=== PATIENT | male | born 1990 | race Caucasian/White ===

== ENCOUNTER 2016-08-28 12:15 | Emergency (ER) | payer OTHER ==
[2016-08-28 13:10] LABS: Hematocrit 43 % (42-52); Hemoglobin 13.8 g/dl (14.0-18.0); Mean Corpuscular HGB Conc 32 g/dl (31-36); Mean Corpuscular Hemoglobin 27 pg (27-31); Mean Corpuscular Volume 84 fL (80-94); Mean Platelet Volume 9 um3 (7.4-10.4); Red Blood Count 5.04 10^6/ul (4.0-5.4); Red Cell Distribution Width 14 % (10.5-15); White Blood Count 8.6 10^3/ul (3.5-10.8)
[2016-08-28 13:27] LABS: Albumin 4.6 g/dL (3.2-5.2); BUN/Creatinine Ratio 8.6 (8-20); C Reactive Protein 71.35 mg/L (< 5.00); Calcium 9.3 mg/dL (8.6-10.3); EGFR African American 125.3 (>60); EGFR Non-African American 97.5 (>60); Globulin 3.2 g/dL (2-4); Potassium 3.7 mmol/L (3.5-5.0); Total Bilirubin 0.5 mg/dL (0.2-1.0); Total Protein 7.8 g/dL (6.4-8.9)
[2016-08-28] MEDS ORDERED: NS 0.9% 1000 ML* 1,000 ML IV ONE (13:37)
[2016-08-28] MEDS ORDERED: HYDROmorphone* 1 MG/ML 1 ML SYR IV ONE ×2 (13:37→16:03)
[2016-08-28] MEDS ORDERED: Ondansetron INJ* 2 MG/ML VIAL IV ONE (13:37)
--- NOTE | 2016-08-28 13:53 | RAD ---
Indication: Abdominal pain. Flat and upright views of the abdomen demonstrates no free air. Moderately distended loops of small bowel are noted in the nonspecific pattern. Moderate distention is noted. IMPRESSION: Moderately distended loops of small bowel in nonspecific pattern. No free air is noted
[2016-08-28] MEDS ORDERED: Iohexol 300* (CONTRAST) 10 ML SDV IV ONE (17:29)
--- NOTE | 2016-08-28 17:52 | RAD ---
INDICATION: Gaseous distention. Pain. Ulcerative colitis with colectomy COMPARISON: Abdomen August 28, 2016 TECHNIQUE: Axial source images were obtained from the hemidiaphragms to the symphysis pubis following administration of oral and intravenous contrast. 105 mL Omnipaque 300 was utilized. Coronal and sagittal reconstructed images were acquired. Lung bases: The lung bases are clear. Liver: The liver is normal in size. There are no masses. There is no ductal dilatation. Gallbladder: There are no calcified gallstones. There is no evidence of wall thickening or pericholecystic fluid. Spleen: The spleen is normal in size. There are no masses. Pancreas: There is no focal pancreatic mass or ductal dilatation. Adrenal glands: There is no evidence of adrenal mass. Kidneys: The kidneys are normal in size and position. There are prompt nephrograms and there is prompt excretion bilaterally. There are no renal parenchymal masses. There is no evidence of nephrolithiasis. Adenopathy: There is no evidence of adenopathy by size criteria. Fluid collections: There are no free or localized fluid collections. Vessels:There are no significant atherosclerotic changes involving the aorta. There is no focal aneurysm. The iliac vessels are normal in caliber. The IVC appears normal. GI tract: There is colectomy by history for ulcerative colitis. There are multiple suture lines compatible with abdominal surgery. There is a stool-filled hollow viscus extending to the rectum presumably representing the dilated stool-filled ileum in this patient with presumed ileoanal anastomosis. The proximal small bowel loops are contrast-filled and measure up to 3 cm. Pelvic organs: The prostate and seminal vesicles appear normal Bladder: There are no bladder masses. Abdominal and pelvic soft tissues: The extraperitoneal abdominal and pelvic soft tissues appear normal.. Osseous structures: There are no acute osseous findings. Other: None IMPRESSION: COLECTOMY WITH ILEOANAL ANASTOMOSIS. THERE IS STOOL IN THE DILATED J-POUCH.
[2016-08-28 18:48] VITALS: BP 128/63
--- NOTE | 2016-08-28 18:53 | ED ---
Rick Grant Auryana, scribed for Andrew Cortez MD on 08/28/16 at 1240 . Abdominal Pain/Male - HPI Summary HPI Summary: 26 year old male presents with upper abdominal pain starting yesterday. He reports that the pain is constant but is intermittent, worst pain - overnight 6/ 10, and slight improvement after 10 am today. Patient reports increased abdominal distention with decreased appetite, small BMs (abnormal per patient) and no passing of gas (abnormal per patient). He denies any nausea or vomiting. Symptoms are aggravated by food. PMHx is significant for ulcerative colitis with colecotmy and J-pouch surgery (2015). - History of Current Complaint Chief Complaint: EDAbdPain Stated Complaint: UPPER /LOWER ABD PAIN PRESSURE Time Seen by Provider: 08/28/16 12:37 Hx Obtained From: Patient Onset/Duration: Gradual Onset, Still Present Timing: Constant Severity Initially: Mild Severity Currently: Moderate Pain Intensity: 6 Pain Scale Used: 0-10 Numeric Location: Other - upper abdominal pain Radiates: No Associated Signs And Symptoms: Positive: Decreased Appetite, Other - abdominal distention. Negative: Nausea, Vomiting Similar Episode/Dx As:: see hpi PMH/Surg Hx/FS Hx/Imm Hx GI History: Reports: Other GI Disorders - ulcerative colitis Infectious Disease History: Denies: Traveled Outside the [place] in Last 30 Days - Family History Known Family History: Positive: Hypertension, Other - ulcerative colitis, RA - Social History Occupation: Employed Full-time Lives: With Family Alcohol Use: Occasionally Hx Substance Use: No Substance Use Type: Reports: None Hx Tobacco Use: No Smoking Status (MU): Never Smoked Tobacco Review of Systems Constitutional: Negative Negative: Fever Eyes: Negative ENT: Negative Cardiovascular: Negative Respiratory: Negative Positive: Abdominal Pain - upper, with distention , Other - decreased appetite. Negative: Vomiting, Nausea Genitourinary: Negative Musculoskeletal: Negative Skin: Negative Neurological: Negative Psychological: Normal All Other Systems Reviewed And Are Negative: Yes Physical Exam Triage Information Reviewed: Yes Vital Signs On Initial Exam: Initial Vitals Temp Pulse Resp BP Pulse Ox 98.7 F 110 16 119/79 100 08/28/16 12:33 08/28/16 12:33 08/28/16 12:33 08/28/16 12:33 08/28/16 12:33 Vital Signs Reviewed: Yes Appearance: Positive: Well-Appearing, No Pain Distress, Well-Nourished Skin: Positive: Warm, Skin Color Reflects Adequate Perfusion, Dry Head/Face: Positive: Normal Head/Face Inspection Eyes: Positive: Normal ENT: Positive: Normal ENT inspection Neck: Positive: Supple, Nontender Respiratory/Lung Sounds: Positive: Clear to Auscultation, Breath Sounds Present Cardiovascular: Positive: Normal, RRR, Pulses are Symmetrical in both Upper and Lower Extremities Abdomen Description: Positive: Soft, Other: - mild diffuse tenderness Bowel Sounds: Positive: Present - normal Musculoskeletal: Positive: Normal, Strength/ROM Intact Neurological: Positive: Normal, Sensory/Motor Intact Psychiatric: Positive: Normal, Affect/Mood Appropriate Diagnostics - Vital Signs Vital Signs Temp Pulse Resp BP Pulse Ox 08/28/16 12:33 98.7 F 110 16 119/79 100 - Laboratory Lab Results: Lab Results 08/28/16 08/28/16 08/28/16 Range/Units 12:45 12:45 12:45 WBC 8.6 (3.5-10.8) 10^3/ul RBC 5.04 (4.0-5.4) 10^6/ul Hgb 13.8 L (14.0-18.0) g/dl Hct 43 (42-52) % MCV 84 (80-94) fL MCH 27 (27-31) pg MCHC 32 (31-36) g/dl RDW 14 (10.5-15) % Plt Count 215 (150-450) 10^3/ul MPV 9 (7.4-10.4) um3 Neut % (Auto) 70.9 (38-83) % Lymph % (Auto) 17.8 L (25-47) % [place] % (Auto) 10.2 H (1-9) % Eos % (Auto) 0.6 (0-6) % Baso % (Auto) 0.5 (0-2) % Absolute Neuts (auto) 6.1 (1.5-7.7) 10^3/ul Absolute Lymphs (auto) 1.5 (1.0-4.8) 10^3/ul Absolute Monos (auto) 0.9 H (0-0.8) 10^3/ul Absolute Eos (auto) 0.1 (0-0.6) 10^3/ul Absolute Basos (auto) 0 (0-0.2) 10^3/ul Absolute Nucleated RBC 0.01 10^3/ul Nucleated RBC % 0.1 Sodium 136 (133-145) mmol/L Potassium 3.7 (3.5-5.0) mmol/L Chloride 102 (101-111) mmol/L Carbon Dioxide 24 (22-32) mmol/L Anion Gap 10 (2-11) mmol/L BUN 8 (6-24) mg/dL Creatinine 0.93 (0.67-1.17) mg/dL Est GFR ( Amer) 125.3 (>60) Est GFR (Non-Af Amer) 97.5 (>60) BUN/Creatinine Ratio 8.6 (8-20) Glucose 91 (70-100) mg/dL Lactic Acid 1.2 (0.5-2.0) mmol/L Calcium 9.3 (8.6-10.3) mg/dL Total Bilirubin 0.50 (0.2-1.0) mg/dL AST 13 (13-39) U/L ALT 9 (7-52) U/L Alkaline Phosphatase 43 (34-104) U/L C-Reactive Protein 71.35 H (< 5.00) mg/L Total Protein 7.8 (6.4-8.9) g/dL Albumin 4.6 (3.2-5.2) g/dL Globulin 3.2 (2-4) g/dL Albumin/Globulin Ratio 1.4 (1-3) Lipase 22 (11.0-82.0) U/L Result Diagrams: 08/28/16 12:45 08/28/16 12:45 Lab Statement: Any lab studies that have been ordered have been reviewed, and results considered in the medical decision making process. - Radiology ABD XR Xray Interpretation: Positive (See Comments) - IMPRESSION: Moderately distended loops of small bowel in nonspecific pattern. No free air is noted. Radiology Interpretation Completed By: Radiologist - CT ABD/PEL CT Interpretation: Positive (See Comments) - IMPRESSION: COLECTOMY WITH ILEOANAL ANASTOMOSIS. THERE IS STOOL IN THE DILATED J-POUCH. CT Interpretation Completed By: Radiologist Re-Evaluation - Re-Evaluation First Eval Re-Evaluation Time: 14:48 - discuss results and discharge Abdominal Pain Fem Course/Dx - Course Course Of Treatment: Mr. Leggett presented with abdominal pain that was constant and mild punctuated by episodes of acute pain. He had a change in his bowel habit and had not passed stool although he typically passes it many times a day. He has a J-pouch after a colectomy. His labs were fine but he became more symptomatic here and a CT was obtained which didn't show an obstruction but did show a lot of stool in the dilated J-pouch. I spoke with Dr. Vivar here and Dr. Alegre in [facility] about disposition and then he abruptly passed a large stool and felt a lot better. We spoke about what to do and hewants to go home and promises to seek care either here or [facility] if he gets worse or fails to get better. - Diagnoses Provider Diagnoses: Abdominal pain - Provider Notifications Discussed Care Of Patient With: Bebe Vivar - surgery Time Discussed With Above Provider: 18:03 Discharge - Discharge Plan Condition: Stable Disposition: HOME Patient Education Materials: Abdominal Pain (ED) Referrals: Non Staff,Doctor [Primary Care Provider] - 3 Days Additional Instructions: PLEASE RETURN FOR ANY PROBLEMS OR WORSENING SYMPTOMS. The documentation as recorded by the Rick andrade Auryana accurately reflects the service I personally performed and the decisions made by me, Andrew Cortez MD.
== END 2016-08-28 18:46 | disposition home or self-care (01) ==
LOC: ED 12:15
DX: R10.10 Upper abdominal pain, unspecified (principal)
CPT/HCPCS: 36415; 74020; 74177; 80053; 83605; 83690; 85025; 86140; 96374; 96375; 99284; J1170; J2405; Q9967